=== PATIENT | male | born 1950 | race Caucasian/White ===

== ENCOUNTER 2022-03-10 22:13 | Emergency (ER) | payer MEDICARE, OTHER, SELFPAY ==
[2022-03-10 22:22] VITALS: BP 159/84; PULSE 58; RESP 17; TEMP 36.5; O2SAT 95; BMI 31.6
[2022-03-10 22:32] VITALS: BP 166/100; PULSE 53; O2SAT 95
--- NOTE | 2022-03-10 22:50 | XRR_ITS ---
PROCEDURE INFORMATION: Exam: XR Chest Exam date and time: 03/10/2022 11:41 PM Age: 71 years old Clinical indication: Other: Palpitations TECHNIQUE: Imaging protocol: Radiologic exam of the chest. Views: 1 view. COMPARISON: No relevant prior studies available. FINDINGS: Lungs: Unremarkable. No consolidation. Pleural spaces: Unremarkable. No pleural effusion. No pneumothorax. Heart/Mediastinum: Mild cardiomegaly. Bones/joints: Status post sternotomy. XR/XR chest 1V portable [id number] IMPRESSION: No acute disease.
--- NOTE | 2022-03-10 22:50 | ECG_ITS ---
[facility] Test Date: 2022-03-10 Pat Name: Elier Kendall Department: Room: Gender: Male Police Clerk: : 1950 Requested By: Aren Brand Order Number: [id number] Alia MD: Yo Brock M.D. Measurements Intervals [place] Rate: 54 P: 0 MT: 0 QRS: -40 QRSD: 94 T: 27 QT: 436 QTc: 414 Interpretive Statements ATRIAL FIBRILLATION WITH SLOW VENTRICULAR RESPONSE LEFT AXIS DEVIATION [QRS AXIS < -30] PATTERN CONSISTENT WITH PULMONARY DISEASE NONSPECIFIC ST & T-WAVE ABNORMALITY No previous ECG available for comparison Electronically Signed On 03-11-2022 11:20:26 DIRECTOR RETIREMENT by Yo Brock M.D. [id number] f
[2022-03-10 23:02] LABS: Basophils # 0.1 10^3/uL (0.0-0.1); Basophils % 0.7 %; Eosinophils # 0.3 10^3/uL (0.0-0.8); Eosinophils % 2.9 %; Hematocrit 45.7 % (42.0-52.0); Lymphocytes # 1.7 10^3/uL (0.8-4.8); Lymphocytes % 19.5 %; Mean Corpuscular HGB Conc 32.8 g/dL (30.0-36.0); Mean Corpuscular Hemoglobin 29.7 pg (28.0-34.0); Mean Corpuscular Volume 90.5 fl (80-94); Mean Platelet Volume 10.8 fL (7.4-10.4); Monocytes # 0.9 10^3/uL (0.2-0.9); Monocytes % 9.6 %; Neutrophils # 5.92 10^3/uL (1.8-7.7); Nucleated Red Blood Cells % 0 %; Platelet Count 128 10^3/cmm (130-400); Red Blood Count 5.05 10^6/uL (4.1-5.3); Red Cell Distribution Width 13.2 % (12.1-15.1); White Blood Count 8.9 10^3/uL (4.0-10.0)
[2022-03-10 23:05] LABS: INR 1.48 (0.8-1.2)
[2022-03-10 23:13] LABS: Troponin(5th) Baseline 11 ng/L (0-15)
[2022-03-10 23:23] LABS: Alanine Aminotransferase 15 U/L (0-41); Albumin Level 3.9 g/dL (3.5-5.2); Alkaline Phosphatase 83 U/L (40-130); Anion Gap 12.5 (5-19); Aspartate Amino Transferase 15 U/L (0-40); Blood Urea Nitrogen 26 mg/dL (8-23); Calcium 8.6 mg/dL (8.5-10.5); Carbon Dioxide 27 mmol/L (22-29); Chloride 106 mmol/L (98-107); Globulin 2.4 g/dL (1.3-4.6); Glucose 123 mg/dL (65-115); NT Pro B Type Natriuretic Pept 640 pg/mL (0-125); Osmolality Calculated 300 mOsm/kg (285-295); Potassium 3.5 mmol/L (3.5-5.1); Sodium 142 mmol/L (136-145); Thyroid Stimulating Hormone 0.14 uIU/mL (0.27-4.20); Total Bilirubin 0.5 mg/dL (0.15-1.2); Total Protein 6.3 g/dL (6.6-8.7)
--- NOTE | 2022-03-10 23:25 | ED_ITS ---
HPI - Arrhythmia/Palpitations General: Chief Complaint: Arrhythmia/Palpitations Stated Complaint: FAST HEART RATE Time Seen by Provider: 03/10/22 22:17 Source: patient History of Present Illness: 71-year-old male with a history of CABG, coronary artery disease, and chronic atrial fibrillation. He presents because he has been having palpitation on and off for a couple of days. The ambulance brings him to the hospital. They found him in atrial fibrillation with a slow ventricular response. He is asymptomatic currently. He denies any chest pain or ever having had chest pain. His heart rate is 60-70 at this point. Blood pressure 146/87. He denies recent illness including fevers cough diarrhea etc. Duration: intermittent and now resolved Severity: moderate Context: occurred during rest Arrhythmia history: atrial fibrillation and on anti-coagulants Associated symptoms: Reports short of breath; Deny cough, diaphoresis, muscle cramps, nausea, paresthesias, pre-syncope, syncope or vomiting Review of Systems Const: Denies: diaphoresis Eyes: Denies: change in vision ENMT: Denies: throat pain Card: Reports: palpitations; Denies: chest pain, syncope or pre-syncope Resp: Reports: dyspnea (Chronic unchanged) GI: Denies: nausea or vomiting Musc: Denies: muscle cramps Physical Exam Const: COMMON NORMALS: no acute distress GENERAL APPEARANCE: cooperative; not ill appearing and not frail appearing HENMT: COMMON NORMALS: normocephalic, atraumatic and Normal external nose present HEAD & SCALP: normocephalic and atraumatic FACE & SINUS: normal facial exam and face symmetric NOSE: Normal external nose present Eye: COMMON NORMALS: Equal, round and reactive pupils present and EOMs intact bilaterally PUPIL: Yes Equal, round and reactive pupils present Neck/C-Spine: GENERAL: Yes trachea midline Chest: CHEST: Yes Symmetrical chest wall rise Resp: COMMON NORMALS: normal respiratory effort, No retractions, No use of accessory muscles and clear to auscultation bilaterally AUSCULTATION: clear to auscultation bilaterally Cardio: COMMON NORMALS: regular rate RATE: regular rate RHYTHM: abnormal rhythm irregularly irregular GI: COMMON NORMALS: Normal to inspection, nondistended, normoactive bowel sounds present Extremity: COMMON NORMALS: no pedal edema Neuro: LAVERNE COMA SCALE: document GCS findings Laverne coma scale eye opening: Spontaneous [place] coma scale verbal response: Orientated Laverne coma scale motor response: Obey commands Laverne coma scale total score: 15 SENSORY EXAM: Yes extremities (intact) Psych: COMMON NORMALS: speech normal SPEECH: Yes normal speech Skin: COMMON NORMALS: no rashes or lesions noted GENERAL SKIN EXAM: no rashes or lesions noted Course Vital Signs: Vital signs: Vital Signs Temperature 97.7 F 03/10/22 22:22 Pulse Rate 59 L 03/11/22 01:00 Respiratory Rate 23 H 03/11/22 01:00 Blood Pressure 139/94 03/11/22 01:00 Pulse Oximetry 94 03/11/22 01:00 Oxygen Delivery Me thod 03/10/22 23:31 MDM - Arrhythmia/Palpitations Medical Decision Making 71-year-old male with palpitations and chest discomfort. Symptoms are resolved. Heart rate has been 60s here in the ER, atrial fibrillation. Blood pressure 124/81 saturations 94%. EKG shows atrial fibrillation with left axis deviation. Rate of 60. QRS duration is normal. No acute ST changes. Chest x-ray shows no acute disease. Platelet count is 128, CBC otherwise normal. BMP shows a creatinine of 1.2 and a BUN of 26. Liver enzymes are normal. Troponin is 11 at baseline and 10.5 at 2 hours. Urinalysis shows hematuria without infection. TSH is low. Patient does take 200 mcg of levothyroxine daily. Lab Data 03/10/22 22:15 03/10/22 22:15 Radiology Impressions Chest X-Ray 03/10/22 22:50 IMPRESSION: No acute disease. Laboratory Results WBC 8.9 10^3/uL (4.0-10.0) 03/10/22 22:15 RBC 5.05 10^6/uL (4.1-5.3) 03/10/22 22:15 Hgb 15.0 g/dL (11.7-16.6) 03/10/22 22:15 Hct 45.7 % (42.0-52.0) 03/10/22 22:15 MCV 90.5 fl (80-94) 03/10/22 22:15 MCH 29.7 pg (28.0-34.0) 03/10/22 22:15 MCHC 32.8 g/dL (30.0-36.0) 03/10/22 22:15 RDW 13.2 % (12.1-15.1) 03/10/22 22:15 Plt Count 128 10^3/cmm (130-400) L 03/10/22 22:15 MPV 10.8 fL (7.4-10.4) H 03/10/22 22:15 Neut % (Auto) 67.0 % 03/10/22 22:15 Lymph % (Auto) 19.5 % 03/10/22 22:15 Andrew % (Auto) 9.6 % 03/10/22 22:15 Eos % (Auto) 2.9 % 03/10/22 22:15 Baso % (Auto) 0.7 % 03/10/22 22:15 Neut # (Auto) 5.92 10^3/uL (1.8-7.7) 03/10/22 22:15 Lymph # (Auto) 1.7 10^3/uL (0.8-4.8) 03/10/22 22:15 Andrew # (Auto) 0.9 10^3/uL (0.2-0.9) 03/10/22 22:15 Eos # (Auto) 0.3 10^3/uL (0.0-0.8) 03/10/22 22:15 Baso # (Auto) 0.1 10^3/uL (0.0-0.1) 03/10/22 22:15 Nucleated RBC % (auto) 0 % 03/10/22 22:15 Nucleated RBCs # 0.0 /100WBC 03/10/22 22:15 PT 18.20 SECONDS (12.1-14.9) H 03/10/22 22:15 INR 1.48 (0.8-1.2) H 03/10/22 22:15 APTT 31.0 SECONDS (23.9-36.7) 03/10/22 22:15 Sodium 142 mmol/L (136-145) 03/10/22 22:15 Potassium 3.5 mmol/L (3.5-5.1) 03/10/22 22:15 Chloride 106 mmol/L (98-107) 03/10/22 22:15 Carbon Dioxide 27 mmol/L (22-29) 03/10/22 22:15 Anion Gap 12.5 (5-19) 03/10/22 22:15 BUN 26 mg/dL (8-23) H 03/10/22 22:15 Creatinine 1.2 mg/dL (0.7-1.2) 03/10/22 22:15 GFR Calculation Not Reportable 03/10/22 22:15 Glucose 123 mg/dL (65-115) H 03/10/22 22:15 Calculated Osmolality 300 mOsm/kg (285-295) H 03/10/22 22:15 Calcium 8.6 mg/dL (8.5-10.5) 03/10/22 22:15 Total Bilirubin 0.5 mg/dL (0.15-1.2) 03/10/22 22:15 AST 15 U/L (0-40) 03/10/22 22:15 ALT 15 U/L (0-41) 03/10/22 22:15 Alkaline Phosphatase 83 U/L (40-130) 03/10/22 22:15 Troponin T Baseline 11 ng/L (0-15) 03/10/22 22:15 Troponin T 120 Minute 10.55 ng/L (0-15) 03/11/22 00:33 Delta Troponin T -0.45 ABS# (0-10) L 03/11/22 00:33 NT-Pro-B Natriuret Pep 640 pg/mL (0-125) H 03/10/22 22:15 Total Protein 6.3 g/dL (6.6-8.7) L 03/10/22 22:15 Albumin 3.9 g/dL (3.5-5.2) 03/10/22 22:15 Globulin 2.4 g/dL (1.3-4.6) 03/10/22 22:15 TSH 0.14 uIU/mL (0.27-4.20) L 03/10/22 22:15 Urine Color Yellow (Yellow) 03/11/22 00:20 Urine Appearance Hazy (CLEAR) A 03/11/22 00:20 Urine pH 7 (5-7) 03/11/22 00:20 Ur Specific Verner 1.010 (1.005-1.030) 03/11/22 00:20 Urine Protein Neg (Negative) 03/11/22 00:20 Urine Glucose (UA) 4+ (Normal) H 03/11/22 00:20 Urine Ketones Negative (Negative) 03/11/22 00:20 Urine Blood 3+ (Negative) H 03/11/22 00:20 Urine Nitrate Negative (Negative) 03/11/22 00:20 Urine Bilirubin Neg (Negative) 03/11/22 00:20 Urine Urobilinogen 1 mg/dL (Negative) H 03/11/22 00:20 Ur Leukocyte Esterase Negative (Negative) 03/11/22 00:20 Urine RBC 25-40 /hpf (0-2) H 03/11/22 00:20 Urine WBC 0-4 /hpf (0-5) H 03/11/22 00:20 Ur Squamous Epith Cells 0-4 /hpf (0-5) H 03/11/22 00:20 Amorphous Sediment Not Reportable 03/11/22 00:20 Urine Bacteria Trace /hpf (NONE) 03/11/22 00:20 Discharge Plan Discharge Patient Disposition: Home Clinical Impression: Palpitations, Atrial fibrillation Condition: Stable Discharge Orders: Discharge ED (Routine); Ordered 03/11/22 Ordered By: Aren Daniel Referrals: Julita Roberts NP [Primary Care Provider] - Patient Instructions: A-fib (Atrial Fibrillation) (ED), Heart Palpitations (ED) Activity Restrictions/Additional Instructions: Your thyroid tested hyperactive this evening which could be causing an increase in heart rate at times. Consult with your doctor about the possibility of changing your dose of thyroid medication. Other medications as prescribed. Return for worsening chest discomfort or palpitations, development of fever, worsening chest pain, other concerning symptoms. Case management will make a follow-up appointment with you with cardiology. Coding Level of Care Code ED Real Estate Administrator for Chg Fwd Exam Comprehensive
[2022-03-10 23:31] VITALS: BP 147/89; PULSE 57; RESP 17; O2SAT 96
[2022-03-11 00:30] LABS: Urine Appearance Hazy (CLEAR); Urine Color Yellow (Yellow); pH Urine 7 (5-7)
[2022-03-11 00:31] LABS: Add Urine Culture? Yes; Add Urine Microscopic? YES; Bacteria Urine TRACE /hpf; Bilirubin Urine Neg (Negative); Blood Urine 3+ (Negative); Glucose Urine UA 4+ (Normal); Ketones Urine Negative (Negative); Leukocyte Esterase Urine Negative (Negative); Nitrate Urine Negative (Negative); Protein Urine Neg (Negative); RBC Urine 25-40 /hpf (0-2); Squamous Epithelial Cell Urine 0-4 /hpf (0-5); Urobilinogen Urine 1 mg/dL (Negative); WBC Urine 0-4 /hpf (0-5)
--- NOTE | 2022-03-11 00:50 | ECG_ITS ---
[facility] Test Date: 2022-03-11 Pat Name: Elier Kendall Department: Room: Gender: Male Chairman & Ceo: : 1950 Requested By: Aren Brand Order Number: [id number] lAia MD: Yo Brock M.D. Measurements Intervals [place] Rate: 57 P: 0 ND: 0 QRS: -42 QRSD: 105 T: -24 QT: 441 QTc: 432 Interpretive Statements ATRIAL FIBRILLATION WITH SLOW VENTRICULAR RESPONSE LEFT AXIS DEVIATION [QRS AXIS < -30] POSSIBLE ANTERIOR MYOCARDIAL INFARCTION , PROBABLY OLD [30 ms Q WAVE IN V3/V4, OR R < 0.2 mV IN V4] Compared to ECG 03/10/2022 22:25:50 Myocardial infarct finding now present T-wave abnormality no longer present Electronically Signed On 03-11-2022 11:33:06 UX DESIGN LEAD by Yo Brock M.D. [id number]
[2022-03-11 01:00] VITALS: BP 139/94; PULSE 59; RESP 23; O2SAT 94
[2022-03-11 01:22] LABS: Troponin 5 2HR 10.55 ng/L (0-15)
[2022-03-11 01:41] LABS: Troponin 5 2HR Delta -0.45 ABS# (0-10)
--- NOTE | 2022-03-12 11:44 | DCPLANNER ---
Addendum entered by Celena Manzano 05/02/22 09:03: Patient had a follow up appointment scheduled with heart care - patient did attend appointment Addendum entered by Celena Manzano 03/15/22 15:16: Patient has a follow up appointment scheduled for Sunday, May 01, 2022 at 1:[address] Brock at [facility]. Clinic will call patient with appointment information. Original Note: quality compliance manager had message to schedule a follow up appointment for patient with cardiology. quality compliance manager sent patients information to the front office staff at [facility]. Patients information will be printed and reviewed. Clinic will call patient with appointment information.
== END 2022-03-11 01:58 | disposition home or self-care (01) ==
PROVIDERS: Emergency Provider Emergency Medicine; PCP Nurse Practitioner Family
DX: R00.2 Palpitations (principal); I48.91 Unspecified atrial fibrillation
CPT/HCPCS: 36415; 71045; 80053; 81001; 83880; 84443; 84484; 85025; 85610; 85730; 87086; 93005; 99285

== ENCOUNTER 2022-03-29 23:53 | Emergency (ER) | payer MEDICARE, MEDICAID, SELFPAY ==
--- NOTE | 2022-03-29 23:54 | XRR_ITS ---
PROCEDURE INFORMATION: Exam: XR Chest Exam date and time: 03/29/2022 11:58 PM Age: 71 years old Clinical indication: Prior surgery; Surgery type: Cabg; Patient HX: C/O palpitations. History of afib. ; Additional info: Cp TECHNIQUE: Imaging protocol: Radiologic exam of the chest. Views: 1 view. COMPARISON: CR (CHEST, ) 03/10/2022 11:41 PM FINDINGS: Lungs: Unremarkable. No consolidation. Pleural spaces: Unremarkable. No pleural effusion. No pneumothorax. Heart/Mediastinum: Unremarkable. No cardiomegaly. Bones/joints: Unremarkable. XR/XR chest 1V portable [id number] IMPRESSION: No acute findings.
[2022-03-29 23:55] VITALS: BP 164/95; PULSE 68; RESP 18; TEMP 36.7; O2SAT 96; BMI 31.3
--- NOTE | 2022-03-29 23:58 | ECG_ITS ---
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 Measurements Intervals [place] Rate: 46 P: 0 NE: 0 QRS: -37 QRSD: 87 T: 180 QT: 259 QTc: 229 Interpretive Statements ATRIAL FIBRILLATION WITH SLOW VENTRICULAR RESPONSE POSSIBLE ANTERIOR MYOCARDIAL INFARCTION , PROBABLY OLD [30 ms Q WAVE IN V3/V4, OR R < 0.2 mV IN V4] INFERIOR MYOCARDIAL INFARCTION , PROBABLY OLD [40+ ms Q WAVE AND/OR ST/T ABNORMALITY IN II/aVF] Compared to ECG 03/11/2022 00:36:55 Left-axis deviation no longer present Myocardial infarct finding still present Electronically Signed On 03-30-2022 16:48:04 CURRICULUM AND INSTRUCTION DIRECTOR by Terrie Lemus M.D. [id number]
--- NOTE | 2022-03-29 23:59 | ED_ITS ---
HPI - General Adult General: Chief complaint: Arrhythmia/Palpitations Stated complaint: CHEST PAIN Time Seen by Provider: 03/29/22 23:54 Source: patient and EMS Mode of arrival: EMS Limitations: no limitations History of Present Illness: 71-year-old male that has a history of A-fib he states that he felt like his heart was beating funny he states tonight he states that he just could feel his heart beat is difficult to get a real complaint from he states just at times he felt like he is having a different heartbeat and can feel it he states in his chest. He denies any chest pain he denies any shor tness of breath he denies any nausea or vomiting. He is resting comfortably currently. He is in A-fib here with a slow VR Associated symptoms: Reports palpitations; Deny dyspnea, headache(s), nausea, rash or vomiting Review of Systems Const: Denies: fever(s), chills, body aches or change in appetite Eyes: Denies: blurry vision or eye discomfort ENMT: Denies: throat pain or dental pain Card: Reports: palpitations and irregular heart rhythm Resp: Denies: dyspnea GI: Denies: abdominal pain, nausea, vomiting or diarrhea : Denies: dysuria Musc: Denies: neck pain or back pain Skin/Breast: Denies: rash Neuro: Denies: headache(s) Psych: Denies: depression Mich/Lymph: Denies: easy bruising All/Imm: Denies: urticaria Physical Exam Const: COMMON NORMALS: no acute distress, patient oriented x3 and healthy appearing HENMT: COMMON NORMALS: normocephalic and atraumatic HEAD & SCALP: normocephalic and atraumatic Eye: COMMON NORMALS: Equal, round and reactive pupils present and EOMs intact bilaterally PUPIL: Yes Equal, round and reactive pupils present Neck/C-Spine: COMMON NORMALS: full ROM and supple Chest: COMMONS NORMALS: normal inspection of the chest and normal palpation of entire chest wall Resp: COMMON NORMALS: normal respiratory effort, No retractions, No use of accessory muscles and clear to auscultation bilaterally AUSCULTATION: clear to auscultation bilaterally Cardio: COMMON NORMALS: No murmurs present (Cardio) RATE: bradycardic RHYTHM: abnormal rhythm irregularly irregular GI: COMMON NORMALS: Normal to inspection, nondistended, normoactive bowel sounds present, Soft to palpation, non-tender and no masses PALPATION: Yes Soft to palpation Extremity: COMMON NORMALS: normal to inspection and full ROM Neuro: COMMON NORMALS: patient oriented x3, moves all extremities and no focal motor deficits Psych: COMMON NORMALS: mental status grossly normal, Normal thought process present and cooperative THOUGHT PROCESS: Normal thought process present Skin: COMMON NORMALS: no rashes or lesions noted and no wounds GENERAL SKIN EXAM: no rashes or lesions noted Course Vital Signs: Vital signs: Vital Signs Temperature 98.1 F 03/29/22 23:55 Pulse Rate 48 L 03/30/22 00:58 Respiratory Rate 16 03/30/22 00:08 Blood Pressure 146/83 03/30/22 00:58 Pulse Oximetry 96 03/30/22 00:58 Oxygen Delivery Me thod 03/30/22 00:58 MDM - General Adult Medical Decision Making Patient presents here with bradycardia with atrial fib with slow ventricular response patient recently increased his Cardizem to 60 from 30 I will decrease it back to 30 patient has cardiology follow-up in April is to follow-up as scheduled return if worsening he had no pain here blood work is all normal. Lab Data 03/30/22 00:05 03/30/22 00:05 Radiology Impressions Chest X-Ray 03/29/22 23:54 IMPRESSION: No acute findings. Laboratory Results WBC 8.6 10^3/uL (4.0-10.0) 03/30/22 00:05 RBC 5.31 10^6/uL (4.1-5.3) H 03/30/22 00:05 Hgb 15.8 g/dL (11.7-16.6) 03/30/22 00:05 Hct 47.4 % (42.0-52.0) 03/30/22 00:05 MCV 89.3 fl (80-94) 03/30/22 00:05 MCH 29.8 pg (28.0-34.0) 03/30/22 00:05 MCHC 33.3 g/dL (30.0-36.0) 03/30/22 00:05 RDW 13.2 % (12.1-15.1) 03/30/22 00:05 Plt Count 124 10^3/cmm (130-400) L 03/30/22 00:05 MPV 10.0 fL (7.4-10.4) 03/30/22 00:05 Neut % (Auto) 75.3 % 03/30/22 00:05 Lymph % (Auto) 14.1 % 03/30/22 00:05 Winston % (Auto) 6.9 % 03/30/22 00:05 Eos % (Auto) 2.7 % 03/30/22 00:05 Baso % (Auto) 0.5 % 03/30/22 00:05 Neut # (Auto) 6.50 10^3/uL (1.8-7.7) 03/30/22 00:05 Lymph # (Auto) 1.2 10^3/uL (0.8-4.8) 03/30/22 00:05 Winston # (Auto) 0.6 10^3/uL (0.2-0.9) 03/30/22 00:05 Eos # (Auto) 0.2 10^3/uL (0.0-0.8) 03/30/22 00:05 Baso # (Auto) 0.0 10^3/uL (0.0-0.1) 03/30/22 00:05 Nucleated RBC % (auto) 0 % 03/30/22 00:05 Nucleated RBCs # 0.0 /100WBC 03/30/22 00:05 PT 15.20 SECONDS (12.1-14.9) H 03/30/22 00:05 INR 1.16 (0.8-1.2) 03/30/22 00:05 Sodium 141 mmol/L (136-145) 03/30/22 00:05 Potassium 4.2 mmol/L (3.5-5.1) 03/30/22 00:05 Chloride 104 mmol/L (98-107) 03/30/22 00:05 Carbon Dioxide 24 mmol/L (22-29) 03/30/22 00:05 Anion Gap 17.2 (5-19) 03/30/22 00:05 BUN 20 mg/dL (8-23) 03/30/22 00:05 Creatinine 1.1 mg/dL (0.7-1.2) 03/30/22 00:05 GFR Calculation Not Reportable 03/30/22 00:05 Glucose 118 mg/dL (65-115) H 03/30/22 00:05 Calculated Osmolality 296 mOsm/kg (285-295) H 03/30/22 00:05 Calcium 9.0 mg/dL (8.5-10.5) 03/30/22 00:05 Total Bilirubin 0.4 mg/dL (0.15-1.2) 03/30/22 00:05 AST 24 U/L (0-40) 03/30/22 00:05 ALT 24 U/L (0-41) 03/30/22 00:05 Alkaline Phosphatase 84 U/L (40-130) 03/30/22 00:05 Troponin T Baseline 11 ng/L (0-15) 03/30/22 00:05 Total Protein 6.5 g/dL (6.6-8.7) L 03/30/22 00:05 Albumin 4.6 g/dL (3.5-5.2) 03/30/22 00:05 Globulin 1.9 g/dL (1.3-4.6) 03/30/22 00:05 EKG Data EKG 1: I personally reviewed and interpreted this EKG as follows: EKG interpretation date: 03/29/22 EKG interpretation time: 23:58 Interpretation: A-fib with slow ventricular response heart rate [address] or T wave normalities QRS 87 QTc 220 Computer generated interpretation: Chest X-Ray 03/29/22 23:54 IMPRESSION: No acute findings. Discharge Plan Discharge Patient Disposition: Home Clinical Impression: Atrial fibrillation, Bradycardia Condition: Stable Discharge Orders: Discharge ED (Routine); Ordered 03/30/22 Ordered By: Skyler Gaona Referrals: Julita Roberts NP [Primary Care Provider] - Discharge Diet: Advance as tolerated Discharge Activity: Resume usual activity Patient Instructions: A-fib (Atrial Fibrillation) (ED), Bradycardia (ED) Coding Level of Care Code ED Embedded Software Architect for Kadi Miller
[2022-03-30 00:08] VITALS: BP 164/95; PULSE 47; RESP 16; O2SAT 96
[2022-03-30 00:15] LABS: Basophils % 0.5 %; Eosinophils # 0.2 10^3/uL (0.0-0.8); Eosinophils % 2.7 %; Hematocrit 47.4 % (42.0-52.0); Hemoglobin 15.8 g/dL (11.7-16.6); Lymphocytes # 1.2 10^3/uL (0.8-4.8); Lymphocytes % 14.1 %; Mean Corpuscular HGB Conc 33.3 g/dL (30.0-36.0); Mean Corpuscular Hemoglobin 29.8 pg (28.0-34.0); Mean Corpuscular Volume 89.3 fl (80-94); Monocytes # 0.6 10^3/uL (0.2-0.9); Monocytes % 6.9 %; Neutrophils % 75.3 %; Nucleated Red Blood Cells % 0 %; Platelet Count 124 10^3/cmm (130-400); Red Blood Count 5.31 10^6/uL (4.1-5.3); Red Cell Distribution Width 13.2 % (12.1-15.1); White Blood Count 8.6 10^3/uL (4.0-10.0)
[2022-03-30 00:30] LABS: INR 1.16 (0.8-1.2)
[2022-03-30 00:39] LABS: Alanine Aminotransferase 24 U/L (0-41); Albumin Level 4.6 g/dL (3.5-5.2); Alkaline Phosphatase 84 U/L (40-130); Aspartate Amino Transferase 24 U/L (0-40); Blood Urea Nitrogen 20 mg/dL (8-23); Carbon Dioxide 24 mmol/L (22-29); Chloride 104 mmol/L (98-107); Globulin 1.9 g/dL (1.3-4.6); Glucose 118 mg/dL (65-115); Osmolality Calculated 296 mOsm/kg (285-295); Sodium 141 mmol/L (136-145); Total Bilirubin 0.4 mg/dL (0.15-1.2); Total Protein 6.5 g/dL (6.6-8.7); Troponin(5th) Baseline 11 ng/L (0-15)
[2022-03-30 00:52] LABS: Anion Gap 17.2 (5-19); Potassium 4.2 mmol/L (3.5-5.1)
[2022-03-30 00:58] VITALS: BP 146/83; PULSE 48; O2SAT 96
[2022-03-30 01:11] VITALS: BP 138/85; PULSE 44; RESP 16; O2SAT 97
== END 2022-03-30 01:12 | disposition home or self-care (01) ==
PROVIDERS: Emergency Provider Emergency Medicine; PCP Nurse Practitioner Family
DX: I48.91 Unspecified atrial fibrillation (principal); R00.1 Bradycardia, unspecified
CPT/HCPCS: 71045; 80053; 84484; 85025; 85610; 93005; 99285

== ENCOUNTER → 2022-05-01 12:45 | Outpatient (BNVA) | payer MEDICARE, SELFPAY | PROVIDERS: PCP Nurse Practitioner Family; Visit Provider Internal Medicine | DX: I25.10 Atherosclerotic heart disease of native coronary artery without angina pectoris (principal); Z95.1 Presence of aortocoronary bypass graft; E11.9 Type 2 diabetes mellitus without complications; Z79.84 Long term (current) use of oral hypoglycemic drugs; R00.2 Palpitations; I10 Essential (primary) hypertension; I48.20 Chronic atrial fibrillation, unspecified; Z79.01 Long term (current) use of anticoagulants; Z79.82 Long term (current) use of aspirin | CPT/HCPCS: 93225; 99204 ==

== ENCOUNTER 2022-05-29 12:53 | Outpatient (CLI) | payer MEDICARE, SELFPAY ==
--- NOTE | 2022-05-29 14:30 | USCV_ITS ---
Elier Kendall Age: 71 Gender: M : 1950 Exam Date: 05/29/2022 13:59 Ordering Phys: Yo Brock M.D ([email or web address]) Technologist: ROC [place] [facility] [place]: CHEST PAIN, SHORTNESS OF BREATH BP: 138 / 90 HR: 51 Rhythm: Atrial fibrillation Technical Quality: Adequate MEASUREMENTS (Male / Female) Normal Values 2D ECHO LVOT Diameter 2.0 cm LV Ejection Fraction MOD 2C 62.3 % LV Ejection Fraction 2C AL 63.7 % LA Diameter 4.5 cm LA Width 3.2 cm LA Height 5.7 cm RA Width 3.9 cm RA Height 4.7 cm Aorta at Sinotubular Diameter 2.5 cm IVC Diameter 1.9 cm M-MODE Aortic Annulus Diameter 2.8 cm LA Ao Ratio MM 1.5 MV E Point Septal Separation 0.3 cm DOPPLER AV Peak Velocity 91.0 cm/s LVOT Peak Velocity 90.0 cm/s AV Area Cont Eq vti 3.2 cm squared AV Area Cont Eq pk 3.2 cm squared MV Peak Velocity 92.0 cm/s MV Area PHT 4.4 cm squared MV E' Velocity 53.5 cm/s Mitral E to MV E' Ratio 8.0 Mitral E to LV E' Lateral Ratio 7.1 Mitral E to LV E' Septal Ratio 9.3 TR Peak Velocity 213.8 cm/s TR Peak Gradient 18.3 mmHg TR Mean Velocity 166.4 cm/s TR Mean Gradient 11.3 mmHg TR Velocity Time Integral 64.5 cm TV Peak E Velocity 70.0 cm/s Right Atrial Pressure 3.0 mmHg Pulmonary Artery Systolic Pressu 21.3 mmHg PV Peak Velocity 63.0 cm/s RV Acceleration Time 0.1 s RV Ejection Time 0.3 s RV AcT/ET 0.3 FINDINGS Left Ventricle Left ventricle is normal in size. LV systolic function is normal with EF of 55 to 60%. No regional wall motion normalities are seen. Right Ventricle Right ventricle is moderately hypokinetic. Right Atrium Severely dilated Left Atrium Severely dilated Mitral Valve Structurally normal mitral valve. Mild mitral regurgitation. Aortic Valve Structurally normal aortic valve. No significant stenosis. Mild aortic regurgitation. Tricuspid Valve Mild tricuspid regurgitation. Pulmonary artery systolic pressure is normal. Pulmonic Valve Not well visualized Pericardium Normal Aorta Normal in size IVC Appears to be normal CONCLUSIONS LV systolic function is normal with EF of 55 to 60%. Right ventricle is moderately hypokinetic Severe biatrial enlargement Mild mitral regurgitation Mild aortic regurgitation Mild tricuspid regurgitation Compared to prior echocardiogram from 2013, patient now has severe biatrial enlargement and RV is hypokinetic. Yo Brock MD (Electronically Signed) Final Date: 09 June 2022 15:55 S
== END 2022-05-29 12:54 | disposition home or self-care (01) ==
LOC: RAD 12:55
PROVIDERS: PCP Nurse Practitioner Family; Visit Provider Internal Medicine
DX: R06.02 Shortness of breath (principal); R07.9 Chest pain, unspecified
CPT/HCPCS: 93306

== ENCOUNTER 2022-06-30 14:08 | Emergency (ER) | payer MEDICARE, SELFPAY ==
[2022-06-30 14:15] VITALS: BP 176/108; PULSE 70; RESP 17; TEMP 36.6; O2SAT 96; BMI 29.0
[2022-06-30 14:54] LABS: Add Urine Microscopic? YES; Bilirubin Urine Neg (Negative); Blood Urine 3+ (Negative); Glucose Urine UA 4+ (Normal); Ketones Urine Negative (Negative); Leukocyte Esterase Urine Negative (Negative); Nitrate Urine Negative (Negative); Protein Urine Neg (Negative); Urine Appearance Hazy (CLEAR); Urine Color Red (Yellow); Urobilinogen Urine Norm (Negative); pH Urine 7 (5-7)
[2022-06-30 14:55] LABS: Add Urine Culture? Yes; Bacteria Urine TRACE /hpf; RBC Urine TOO NUMEROUS TO CNT /hpf (0-2); Squamous Epithelial Cell Urine 0-4 /hpf (0-5)
--- NOTE | 2022-06-30 15:19 | CTR_ITS ---
PROCEDURE INFORMATION: Exam: CT Abdomen And Pelvis With Contrast Exam date and time: 06/30/2022 4:32 PM Age: 71 years old Clinical indication: Other: Hematuria TECHNIQUE: Imaging protocol: Computed tomography of the abdomen and pelvis with contrast. Radiation optimization: All CT scans at this facility use at least one of these dose optimization techniques: automated exposure control; mA and/or kV adjustment per patient size (includes targeted exams where dose is matched to clinical indication); or iterative reconstruction. Contrast material: OMNI 350; Contrast volume: 100 ml; Contrast route: INTRAVENOUS (IV); REPORTING DATA: Count of CT and Cardiac NM exams in prior 12 months: This patient has received 0 known CTs and 0 known cardiac nuclear medicine studies in the 12 months prior to the current study. COMPARISON: CR XR chest 1V portable [id number] 03/29/2022 11:58 PM RADIATION DOSE METRICS: Total DLP (mGy-cm): 808.71 FINDINGS: Heart: [id number] cardiomegaly with coronary calcification. Liver: Normal. No mass. Gallbladder and bile ducts: Normal. No calcified stones. No ductal dilation. Pancreas: Normal. No ductal dilation. Spleen: Mild splenomegaly with multiple calcified granulomas. No suspicious lesion. Adrenal glands: Normal. No mass. Kidneys and ureters: Left upper pole simple renal cyst measuring 3.5 cm. Nonobstructing interpolar left renal calculus measuring 6 x 4 mm. A few tiny hypodense renal lesions bilaterally, likely tiny simple cyst. Nonobstructing right upper pole renal calculus measuring 3 x 2 mm. There is also a right proximal ureteral calculus measuring 6 x 4 by 4 mm with minimal right hydronephrosis and minimal perinephric stranding. No regional collection. Stomach and bowel: Low stool burden. Early colonic diverticular formation without diverticulitis. Appendix: No evidence of appendicitis. Intraperitoneal space: Unremarkable. No free air. No significant fluid collection. Vasculature: No abdominal aortic aneurysm. Lymph nodes: No enlarged lymph nodes. Urinary bladder: Unremarkable as visualized. Reproductive: Minimal prostate enlargement. Bones/joints: Multilevel vertebral disc degeneration and endplate osteophytes. No acute osseous findings otherwise. Soft tissues: No acute findings. CT/CT abdomen pelvis w con* [id number] IMPRESSION: 1. Right proximal ureteral calculus with minimal hydronephrosis. Additional nonobstructing bilateral renal calculi are present. 2. Mild splenomegaly. 3. Coronary calcification and other nonacute findings as above. COMMENTS: Consistent with the [place]'s Incidental Findings Committee white paper (J Am Janna Radiol 2018): Any incidental renal lesion less than 1 cm or classified as too small to characterize, or any incidental cystic renal lesion characterized as simple-appearing, is likely benign. No follow-up imaging is recommended for these lesions per consensus recommendations based on imaging criteria.
--- NOTE | 2022-06-30 15:27 | W.ED.MALEGU ---
HPI - Male Genitourinary General: Chief complaint: Urogenital-Male Stated complaint: urogenital Time Seen by Provider: 06/30/22 15:16 Source: patient Mode of arrival: ambulatory Limitations: no limitations History of Present Illness: 71-year-old male states that he is on Xarelto he states he was recently increased to 20 mg daily. He states that since yesterday has been having gross hematuria. He denies any pain with urination denies any abdominal or flank pain he denies passing any blood clots or urinary retention. Associated symptoms: Reports hematuria; Deny dysuria, nausea or vomiting Review of Systems Const: Denies: fever(s), chills, body aches or change in appetite ENMT: Denies: throat pain Card: Denies: chest pain Resp: Denies: dyspnea GI: Denies: abdominal pain, nausea or vomiting : Reports: hematuria; Denies: dysuria Musc: Denies: neck pain or back pain Skin/Breast: Denies: rash Neuro: Denies: headache(s) PFSH ED PFSH: Medical History Diabetes HTN (hypertension) Family History Sister Diabetes Father Diabetes Mother Diabetes Social History Smoking and tobacco status: never smoked Alcohol intake: never Substance/Drug Use: never Physical Exam Const: COMMON NORMALS: no acute distress, patient oriented x3 and healthy appearing HENMT: COMMON NORMALS: normocephalic and atraumatic HEAD & SCALP: normocephalic and atraumatic Eye: COMMON NORMALS: conjunctivae normal CONJUNCTIVA: Yes conjunctivae normal Neck/C-Spine: COMMON NORMALS: full ROM and supple Chest: COMMONS NORMALS: normal inspection of the chest and normal palpation of entire chest wall Resp: COMMON NORMALS: normal respiratory effort, No retractions, No use of accessory muscles and clear to auscultation bilaterally AUSCULTATION: clear to auscultation bilaterally Cardio: COMMON NORMALS: regular rate, regular rhythm and No murmurs present (Cardio) RATE: regular rate RHYTHM: regular rhythm GI: COMMON NORMALS: Normal to inspection, nondistended, normoactive bowel sounds present, Soft to palpation, non-tender and no masses PALPATION: Yes Soft to palpation Extremity: COMMON NORMALS: normal to inspection and full ROM Neuro: COMMON NORMALS: patient oriented x3, moves all extremities and no focal motor deficits Psych: COMMON NORMALS: mental status grossly normal, Normal thought process present and cooperative THOUGHT PROCESS: Normal thought process present Skin: COMMON NORMALS: no rashes or lesions noted and no wounds GENERAL SKIN EXAM: no rashes or lesions noted Course Vital Signs: Vital signs: Vital Signs Temperature 98 F 06/30/22 14:15 Pulse Rate 70 06/30/22 14:15 Respiratory Rate 17 06/30/22 14:15 Blood Pressure 176/108 06/30/22 14:15 Pulse Oximetry 96 06/30/22 14:15 MDM - Male Medical Decision Making Patient presents here with gross hematuria since increasing his dose of Eliquis he does have a proximal kidney stone with minimal hydro-. He has no pain here. 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 Medical Records I reviewed the patient's medical records. Lab Data I reviewed the patient's lab results. 06/30/22 15:30 06/30/22 15:30 Radiology Impressions Abdomen/Pelvis CT 06/30/22 15:19 IMPRESSION: 1. Right proximal ureteral calculus with minimal hydronephrosis. Additional nonobstructing bilateral renal calculi are present. 2. Mild splenomegaly. 3. Coronary calcification and other nonacute findings as above. COMMENTS: Consistent with the [employer]'s Incidental Findings Committee white paper (J Am Janna Radiol 2018): Any incidental renal lesion less than 1 cm or classified as too small to characterize, or any incidental cystic renal lesion characterized as simple-appearing, is likely benign. No follow-up imaging is recommended for these lesions per consensus recommendations based on imaging criteria. Laboratory Results WBC 7.9 10^3/uL (4.0-10.0) 06/30/22 15:30 RBC 5.82 10^6/uL (4.1-5.3) H 06/30/22 15:30 Hgb 17.8 g/dL (11.7-16.6) H 06/30/22 15:30 Hct 53.6 % (42.0-52.0) H 06/30/22 15:30 MCV 92.1 fl (80-94) 06/30/22 15:30 MCH 30.6 pg (28.0-34.0) 06/30/22 15:30 MCHC 33.2 g/dL (30.0-36.0) 06/30/22 15:30 RDW 13.8 % (12.1-15.1) 06/30/22 15:30 Plt Count 113 10^3/cmm (130-400) L 06/30/22 15:30 MPV 10.2 fL (7.4-10.4) 06/30/22 15:30 Neut % (Auto) 77.5 % 06/30/22 15:30 Lymph % (Auto) 12.6 % 06/30/22 15:30 Bond % (Auto) 6.9 % 06/30/22 15:30 Eos % (Auto) 2.1 % 06/30/22 15: Baso % (Auto) 0.4 % 06/30/22 15:30 Neut # (Auto) 6.13 10^3/uL (1.8-7.7) 06/30/22 15:30 Lymph # (Auto) 1.0 10^3/uL (0.8-4.8) 06/30/22 15:30 Bond # (Auto) 0.6 10^3/uL (0.2-0.9) 06/30/22 15:30 Eos # (Auto) 0.2 10^3/uL (0.0-0.8) 06/30/22 15:30 Baso # (Auto) 0.0 10^3/uL (0.0-0.1) 06/30/22 15:30 Nucleated RBC % (auto) 0 % 06/30/22 15: Nucleated RBCs # 0.0 /100WBC 06/30/22 15:30 PT 21.20 SECONDS (12.1-14.9) H 06/30/22 15:30 INR 1.77 (0.8-1.2) H 06/30/22 15:30 Sodium 140 mmol/L (136-145) 06/30/22 15:30 Potassium 3.7 mmol/L (3.5-5.1) 06/30/22 15:30 Chloride 102 mmol/L (98-107) 06/30/22 15:30 Carbon Dioxide 25 mmol/L (22-29) 06/30/22 15:30 Anion Gap 16.7 (5-19) 06/30/22 15:30 BUN 21 mg/dL (8-23) 06/30/22 15:30 Creatinine 1.3 mg/dL (0.7-1.2) H 06/30/22 15:30 GFR Calculation Not Reportable 06/30/22 15:30 Glucose 130 mg/dL (65-115) H 06/30/22 15:30 Calculated Osmolality 295 mOsm/kg (285-295) 06/30/22 15:30 Calcium 9.4 mg/dL (8.5-10.5) 06/30/22 15:30 Total Bilirubin 0.7 mg/dL (0.15-1.2) 06/30/22 15:30 AST 24 U/L (0-40) 06/30/22 15:30 ALT 23 U/L (0-41) 06/30/22 15:30 Alkaline Phosphatase 76 U/L (40-130) 06/30/22 15:30 Total Protein 7.7 g/dL (6.6-8.7) 06/30/22 15:30 Albumin 4.8 g/dL (3.5-5.2) 06/30/22 15:30 Globulin 2.9 g/dL (1.3-4.6) 06/30/22 15:30 Urine Color Red (Yellow) 06/30/22 14:31 Urine Appearance Hazy (CLEAR) A 06/30/22 14:31 Urine pH 7 (5-7) 06/30/22 14:31 Ur Specific [place] 1.010 (1.005-1.030) 06/30/22 14:31 Urine Protein Neg (Negative) 06/30/22 14:31 Urine Glucose (UA) 4+ (Normal) H 06/30/22 14:31 Urine Ketones Negative (Negative) 06/30/22 14:31 Urine Blood 3+ (Negative) H 06/30/22 14:31 Urine Nitrate Negative (Negative) 06/30/22 14: Urine Bilirubin Neg (Negative) 06/30/22 14: Urine Urobilinogen Norm mg/dL (Negative) 06/30/22 14:31 Ur Leukocyte Esterase Negative (Negative) 06/30/22 14:31 Urine RBC Too numerous to cnt /hpf (0-2) H 06/30/22 14:31 Urine WBC 5-10 /hpf (0-5) H 06/30/22 14:31 Ur Squamous Epith Cells 0-4 /hpf (0-5) H 06/30/22 14:31 Amorphous Sediment Not Reportable 06/30/22 14:31 Urine Bacteria Trace /hpf (NONE) 06/30/22 14:31 Discharge Plan Discharge Patient Disposition: Home Clinical Impression: Kidney stone, Hematuria Condition: Stable Prescriptions: New Xarelto 10 mg tablet 10 mg PO DAILY Qty: 30 0RF Rx Instructions: for 12 days Discontinued Xarelto 20 mg tablet 20 mg PO DAILY Qty: 90 3RF Rx Instructions: must administer with evening meal No Action carvedilol 12.5 mg tablet 12.5 mg PO BID Rx Instructions: must administer with a meal/food aspirin 81 mg tablet,chewable 81 mg PO DAILY potassium chloride 10 mEq capsule, extended release 20 meq PO BID diltiazem HCl 60 mg tablet 60 mg PO DAILY cholecalciferol (vitamin D3) 125 mcg (5,000 unit) capsule 125 mcg PO DAILY furosemide [Lasix] 40 mg tablet 40 mg PO BID atorvastatin 40 mg tablet 40 mg PO DAILY temazepam 15 mg Capsule 15 mg PO BEDTIME Discharge Orders: Discharge ED (Routine); Ordered 06/30/22 Ordered By: Skyler Gaona Referrals: Julita Roberts NP [Primary Care Provider] - Discharge Diet: Advance as tolerated Discharge Activity: Resume usual activity Patient Instructions: Kidney Stones (ED), Hematuria (ED) Coding Level of Care Code ED Running Specialist for Kadi Miller
[2022-06-30 15:28] VITALS: BP 136/107; PULSE 70; O2SAT 95
[2022-06-30 15:40] LABS: Basophils % 0.4 %; Eosinophils # 0.2 10^3/uL (0.0-0.8); Eosinophils % 2.1 %; Hematocrit 53.6 % (42.0-52.0); Hemoglobin 17.8 g/dL (11.7-16.6); Lymphocytes % 12.6 %; Mean Corpuscular HGB Conc 33.2 g/dL (30.0-36.0); Mean Corpuscular Hemoglobin 30.6 pg (28.0-34.0); Mean Corpuscular Volume 92.1 fl (80-94); Mean Platelet Volume 10.2 fL (7.4-10.4); Monocytes # 0.6 10^3/uL (0.2-0.9); Monocytes % 6.9 %; Neutrophils # 6.13 10^3/uL (1.8-7.7); Neutrophils % 77.5 %; Nucleated Red Blood Cells % 0 %; Platelet Count 113 10^3/cmm (130-400); Red Blood Count 5.82 10^6/uL (4.1-5.3); Red Cell Distribution Width 13.8 % (12.1-15.1); White Blood Count 7.9 10^3/uL (4.0-10.0)
[2022-06-30 15:51] LABS: INR 1.77 (0.8-1.2)
[2022-06-30 15:59] LABS: Alanine Aminotransferase 23 U/L (0-41); Albumin Level 4.8 g/dL (3.5-5.2); Alkaline Phosphatase 76 U/L (40-130); Aspartate Amino Transferase 24 U/L (0-40); Blood Urea Nitrogen 21 mg/dL (8-23); Calcium 9.4 mg/dL (8.5-10.5); Carbon Dioxide 25 mmol/L (22-29); Chloride 102 mmol/L (98-107); Globulin 2.9 g/dL (1.3-4.6); Glucose 130 mg/dL (65-115); Osmolality Calculated 295 mOsm/kg (285-295); Sodium 140 mmol/L (136-145); Total Bilirubin 0.7 mg/dL (0.15-1.2); Total Protein 7.7 g/dL (6.6-8.7)
[2022-06-30 16:03] LABS: Anion Gap 16.7 (5-19); Potassium 3.7 mmol/L (3.5-5.1)
[2022-06-30] MEDS: iohexol 350 mg/mL 500 mL Btl (per mL) IV (16:36)
[2022-06-30 17:00] VITALS: PULSE 68; O2SAT 98
[2022-06-30 17:22] VITALS: BP 132/91; PULSE 68; O2SAT 97
--- NOTE | 2022-07-01 04:57 | DCPLANNER ---
Addendum entered by Celena Manzano 07/17/22 13:59: assistant guest services manager called [facility] to confirm that clinic had received patients information. assistant guest services manager was told that clinic did receive patients information, but when clinic called patient to schedule a follow up appointment, patient declined appointment. Addendum entered by Celena Manzano 07/10/22 09:04: assistant guest services manager received the following message from the urology clinic regarding follow up appointment: Dr Tapia is on vacation until July 10, Please refer patient elsewhere. assistant guest services manager spoke with patient about being referred elsewhere. Patient stated to refer him to Dr. Castillo. assistant guest services manager will fax patients information to the [facility]. Patients information will be reviewed, clinic will call patient with appointment information. Original Note: assistant guest services manager had message to schedule a follow up appointment for patient with urology. assistant guest services manager sent patients information to the front office staff at urology. Patients information will be printed and reviewed. Clinic will call patient with appointment information.
== END 2022-06-30 17:23 | disposition home or self-care (01) ==
PROVIDERS: Emergency Provider Emergency Medicine; PCP Nurse Practitioner Family
DX: R31.0 Gross hematuria (principal); Z79.01 Long term (current) use of anticoagulants; N13.2 Hydronephrosis with renal and ureteral calculous obstruction
CPT/HCPCS: 74177; 80053; 81001; 85025; 85610; 87086; 99285; Q9967

== ENCOUNTER → 2022-11-29 12:47 | Outpatient (BNVA) | payer MEDICARE, SELFPAY | PROVIDERS: PCP Nurse Practitioner Family; Visit Provider Nurse Practitioner Family | DX: I48.91 Unspecified atrial fibrillation (principal); I10 Essential (primary) hypertension; I25.10 Atherosclerotic heart disease of native coronary artery without angina pectoris; Z79.01 Long term (current) use of anticoagulants | CPT/HCPCS: 99214 ==

== ENCOUNTER → 2022-12-10 10:07 | Outpatient (BNVA) | payer MEDICARE, SELFPAY | PROVIDERS: PCP Nurse Practitioner Family; Visit Provider Podiatrist Foot & Ankle Surgery | DX: B35.1 Tinea unguium (principal); E11.9 Type 2 diabetes mellitus without complications; I73.9 Peripheral vascular disease, unspecified; Z89.422 Acquired absence of other left toe(s) | CPT/HCPCS: 11056; 11720; 99203 ==

== ENCOUNTER → 2023-05-27 14:24 | Outpatient (BNVA) | payer MEDICARE, SELFPAY | PROVIDERS: PCP Nurse Practitioner Family; Visit Provider Internal Medicine | DX: I25.10 Atherosclerotic heart disease of native coronary artery without angina pectoris (principal); I48.91 Unspecified atrial fibrillation; Z79.01 Long term (current) use of anticoagulants; Z79.82 Long term (current) use of aspirin; E11.9 Type 2 diabetes mellitus without complications; I10 Essential (primary) hypertension | CPT/HCPCS: 99214 ==

== ENCOUNTER 2023-11-12 09:37 | Outpatient (CLI) | payer MEDICARE, OTHER, SELFPAY ==
--- NOTE | 2023-11-12 09:53 | ECG_ITS ---
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
[2023-11-12 09:54] VITALS: BMI 33.2
[2023-11-12] MEDS: regadenoson 0.4 Mg/5 ml Syringe IVP (11:21)
[2023-11-12 11:36] VITALS: BP 140/80; PULSE 63
== END 2023-11-12 09:38 | disposition home or self-care (01) ==
PROVIDERS: PCP Nurse Practitioner Family; Visit Provider Internal Medicine
DX: I48.91 Unspecified atrial fibrillation (principal); I25.10 Atherosclerotic heart disease of native coronary artery without angina pectoris
CPT/HCPCS: 36415; 78452; 93017; 96374; A9500; J2785

== ENCOUNTER → 2023-11-27 11:57 | Outpatient (BNVA) | payer MEDICARE, SELFPAY | PROVIDERS: PCP Nurse Practitioner Family; Visit Provider Internal Medicine | DX: I25.10 Atherosclerotic heart disease of native coronary artery without angina pectoris (principal); I48.91 Unspecified atrial fibrillation; Z79.01 Long term (current) use of anticoagulants; E11.9 Type 2 diabetes mellitus without complications; I10 Essential (primary) hypertension | CPT/HCPCS: 99214 ==

== ENCOUNTER → 2024-05-27 10:37 | Outpatient (BNVA) | payer OTHER, SELFPAY | PROVIDERS: PCP Nurse Practitioner Family; Visit Provider Nurse Practitioner Family | DX: I48.20 Chronic atrial fibrillation, unspecified (principal); Z79.01 Long term (current) use of anticoagulants; Z79.82 Long term (current) use of aspirin; I10 Essential (primary) hypertension; I25.10 Atherosclerotic heart disease of native coronary artery without angina pectoris; I73.9 Peripheral vascular disease, unspecified; E11.8 Type 2 diabetes mellitus with unspecified complications; Z79.85 Long-term (current) use of injectable non-insulin antidiabetic drugs; I25.2 Old myocardial infarction | CPT/HCPCS: 99214 ==

== ENCOUNTER 2024-10-16 07:17 | Outpatient (CLI) | payer OTHER, SELFPAY ==
--- NOTE | 2024-10-16 07:22 | US_ITS ---
WS: [id number] TESTICULAR ULTRASOUND HISTORY: SCROTAL SWELLING COMPARISON: None available. TECHNIQUE: Real-time and color Doppler imaging utilized to perform a testicular ultrasound. Right testicle: 3.8 cm x 2.1 cm x 2.4 cm. Normal size and echogenicity. No mass or torsion. Normal color Doppler is present throughout. Systolic and diastolic velocities are both present. Small hydrocele. Right epididymis: Enlarged heterogeneous epididymis with increased vascularity. Left testicle: 1.0 cm x 2.4 cm x 2.1 cm. Normal size and echogenicity. No mass or torsion. Normal color Doppler is present throughout. Systolic and diastolic velocities are both present. No significant hydrocele. Left epididymis: Normal epididymis with no increased vascularity. Pampiniform plexus appears prominent but there is no evidence for varicoceles on the images submitted. No Valsalva imaging submitted in which diameter of the veins can be measured to evaluate for varicoceles. US/US scrotum [id number] IMPRESSION: 1. No testicular mass or torsion. 2. Suspect mild RIGHT epididymitis. 3. Limited evaluation of the pampiniform plexus. The pampiniform plexus appear s prominent but no imaging with appropriate Valsalva maneuvers in order to maciej ectly evaluate for varicoceles.
== END 2024-10-16 07:18 | disposition home or self-care (01) ==
LOC: RAD 07:18
PROVIDERS: PCP Nurse Practitioner Family; Visit Provider Nurse Practitioner Family
DX: N50.89 Other specified disorders of the male genital organs (principal)
CPT/HCPCS: 76870

== ENCOUNTER 2024-12-25 15:20 | Outpatient (CLI) | payer OTHER, SELFPAY ==
--- NOTE | 2024-12-25 16:00 | USR_ITS ---
PROCEDURE INFORMATION: Exam: US Duplex Bilateral Lower Extremity Arteries Exam date and time: 12/25/2024 3:47 PM Age: 74 years old Clinical indication: Bilateral leg pain TECHNIQUE: Imaging protocol: Real-time ultrasound scan of the arteries of the bilateral lower extremities with 2-D garcia scale, color Doppler flow and spectral waveform analysis. Images documented and saved. COMPARISON: US [email or web address] [id number] 10/16/2024 7:27 AM FINDINGS: Right common femoral artery: No occlusion or significant stenosis. Normal waveform. Right superficial femoral artery: No occlusion or significant stenosis. Normal waveform. Right popliteal artery: No occlusion or significant stenosis. Normal waveform. Right calf/foot arteries: No occlusion or significant stenosis in the visualized arteries. Normal waveforms. Dorsalis pedis artery is patent. Left common femoral artery: No occlusion or significant stenosis. Normal waveform. Left superficial femoral artery: No occlusion or significant stenosis. Normal waveform. Left popliteal artery: No occlusion or significant stenosis. Normal waveform. Left calf/foot arteries: No occlusion or significant stenosis in the visualized arteries. Normal waveforms. Dorsalis pedis artery is patent. Right Ankle-Brachial Index: 1.30 Left Ankle-Brachial Index: 1.49 US/CV arterial duplex [facility] [id number] IMPRESSION: Triphasic waveforms throughout the bilateral lower extremities without occlusion or significant stenosis.
== END 2024-12-25 15:21 | disposition home or self-care (01) ==
LOC: RAD 15:21
PROVIDERS: PCP Nurse Practitioner Family; Visit Provider Internal Medicine
DX: M79.604 Pain in right leg (principal); M79.605 Pain in left leg; R29.898 Other symptoms and signs involving the musculoskeletal system
CPT/HCPCS: 93925